=== PATIENT | male | born 1985 | race Caucasian/White ===

== ENCOUNTER 2020-10-22 16:05 | Emergency (ER) | payer BC, OTHER ==
[~2020-10-22] VITALS: Ht 188 cm; Wt 112.6 kg
[2020-10-22] MEDS ORDERED: PRAZ1CAP (16:19)
[2020-10-22] MEDS ORDERED: LIDOCAINE W/EPINEPHRINE 1% 20ML VIAL SC ONE (16:55)
--- NOTE | 2020-10-22 17:26 | REP ---
INDICATION: puncture to left thumb webbing; r/o FB COMPARISON: None. TECHNIQUE: AP and lateral views of the left hand. FINDINGS: Subcutaneous emphysema between the 1st and 2nd metacarpal bones. No foreign body. Osseous structures are intact and without acute fracture or dislocation. IMPRESSION: Subcutaneous emphysema. No foreign body. <Electronically signed by Kyrie Andreson > 10/22/20 1811
[2020-10-22 17:42] VITALS: BP 130/92
== END 2020-10-22 18:00 | disposition home or self-care (01) ==
LOC: M ED 16:05
DX: S61.432A Puncture wound without foreign body of left hand, initial encounter (principal); W22.8XXA Striking against or struck by other objects, initial encounter; Y92.89 Other specified places as the place of occurrence of the external cause; Y99.0 Civilian activity done for income or pay; Z79.899 Other long term (current) drug therapy

== ENCOUNTER → 2022-08-25 | Outpatient (CLI) | payer OTHER ==
[~2022-08-25] MED LIST: PRAZ1CAP
== END ==
LOC: M PLAIMG 12:46
PROVIDERS: ATTEND Orthopaedic Surgery
DX: D16.9 Benign neoplasm of bone and articular cartilage, unspecified (principal)

== ENCOUNTER → 2022-09-17 | Outpatient (CLI) | payer OTHER | LOC: M PLAIMG 12:56 | PROVIDERS: ATTEND Orthopaedic Surgery | DX: D16.21 Benign neoplasm of long bones of right lower limb (principal) ==